=== PATIENT | female | born 1945 | race Caucasian/White ===

== ENCOUNTER 2024-02-16 20:15 | Emergency (ER) | payer MEDICARE | END 2024-02-16 22:43 | disposition home or self-care (01) | LOC: CSHERS 20:15 | DX: S86.811A Strain of other muscle(s) and tendon(s) at lower leg level, right leg, initial encounter (principal); E11.9 Type 2 diabetes mellitus without complications; E78.00 Pure hypercholesterolemia, unspecified; E03.9 Hypothyroidism, unspecified; W18.30XA Fall on same level, unspecified, initial encounter; Z79.899 Other long term (current) drug therapy; Z79.4 Long term (current) use of insulin | CPT/HCPCS: 99283 ==

== ENCOUNTER 2025-02-01 20:32 | Emergency (ER) | payer MEDICARE ==
[2025-02-01] MEDS ORDERED: Ketorolac Tromethamine 30 MG (1 mL) VIAL ONE (21:44)
[2025-02-01 22:49] LABS: Glucose, Urine (Dipstick) >=1000 mg/dL (Negative); Leukocyte Negative (Negative); Protein, Urine (Dipstick) Negative (Neg-Trace); Specific Gravity, Urine 1.010 (1.005-1.030)
[2025-02-01 22:59] LABS: CAUTI Indications for Culture Pelvic or flank pain; RBC/HPF 0-3 HPF (0-3); WBC/HPF 0-3 HPF (0-3)
[2025-02-01 23:01] LABS: Bacteria/HPF 1+ HPF (None Seen)
[2025-02-01 23:02] LABS: Urine Culture Reflex No No
[2025-02-01] MEDS ORDERED: Cyclobenzaprine 10 MG TAB ONE (23:25)
== END 2025-02-01 23:32 | disposition home or self-care (01) ==
LOC: CSHERS 20:32
DX: S39.012A Strain of muscle, fascia and tendon of lower back, initial encounter (principal); E11.9 Type 2 diabetes mellitus without complications; E03.9 Hypothyroidism, unspecified; E78.00 Pure hypercholesterolemia, unspecified; X50.0XXA Overexertion from strenuous movement or load, initial encounter; Z79.4 Long term (current) use of insulin; Z79.899 Other long term (current) drug therapy
CPT/HCPCS: 72131; 81001; J1885; J2270; 96374; 96375